=== PATIENT | female | born 1950 | race African-American/Black ===

== ENCOUNTER 2018-02-19 15:42 | Inpatient (IN) | payer OTHER ==
--- NOTE | 2018-02-19 18:43 | HP ---
CIWA Score - CIWA Score Nausea/Vomitin-Mild Nausea/No Vomiting Muscle Tremors: 3 Anxiety: 3 Agitation: 3 Paroxysmal Sweats: 1-Minimal Palms Moist Orientation: 0-Oriented Tacttile Disturbances: 0-None Auditory Disturbances: 0-None Visual Disturbances: 0-None Headache: 0-None Present CIWA-Ar Total Score: 11 Admission ROS S - [facility] Chief Complaint: alcohol withdrawal sx Allergies/Adverse Reactions: Allergies Allergy/AdvReac Type Severity Reaction Status Date / Time egg Allergy Severe Verified 02/19/18 18:19 History of Present Illness: 67 yo f with h/o alcohol use diosrder, severe first admission to [facility] or any detox c/o alcohol withdrawal sx when she does nto drink. no h/o seizures, no DTS or SI. PMHX DM, HTN, arhthritis ambulates with a cane. sent in by her md for detox, Exam Limitations: No Limitations - Ebola screening Have you traveled outside of the country in the last 21 days: No Have you had contact with anyone from an Ebola affected area: No Have you been sick,other than usual withdrawal symptoms: No Do you have a fever: No - Review of Systems Constitutional: Chills, Diaphoresis, Night Sweats, Changes in sleep, Unintentional Wgt. Loss EENT: reports: No Symptoms Reported Respiratory: reports: No Symptoms reported Cardiac: reports: No Symptoms Reported GI: reports: Nausea, Poor Appetite, Poor Fluid Intake, Indigestion, Abdominal cramping : reports: No Symptoms Reported Musculoskeletal: reports: Back Pain, Joint Pain, Joint Swelling, Muscle Pain, Joint Stiffness (arhtjirtis all over) Integumentary: reports: Sweating Neuro: reports: Numbness, Tingling, Tremors Endocrine: reports: Increased Thirst Hematology: reports: No Symptoms Reported Psychiatric: reports: Judgement Intact, Mood/Affect Appropiate, Orientated x3, Anxious, Depressed Other Systems: Reviewed and Negative Patient History - Patient Medical History Hx Anemia: No Hx Asthma: No Hx Chronic Obstructive Pulmonary Disease (COPD): No Hx Cancer: No Hx Cardiac Disorders: No Hx Congestive Heart Failure: No Hx Hypertension: Yes Hx Hypercholesterolemia: No Hx Pacemaker: No HX Cerebrovascular Accident: No Hx Seizures: No Hx Dementia: No Hx Diabetes: Yes (has pump with her blood bglucose 305) Hx Gastrointestinal Disorders: No Hx Liver Disease: No Hx Genitourinary Disorders: No Hx Sexually Transmitted Disorders: No Hx Renal Disease (ESRD): No Hx Thyroid Disease: No Hx Human Immunodeficiency Virus (HIV): No Hx Hepatitis C: No Hx Depression: Yes Hx Suicide Attempt: No (no SI at this time) Hx Bipolar Disorder: No Hx Schizophrenia: No Other Medical History: arthritis, ambulates with a cane - Patient Surgical History Past Surgical History: Yes Hx Orthopedic Surgery: Yes (arthroscopic sure1996) Anesthesia Reaction: No - PPD History Previous Implant?: Yes Documented Results: Negative w/o proof Implanted On Prior [facility] Admission?: No PPD to be Administered?: Yes - Reproductive History Patient is a Female of Child Bearing Age (11 -55 yrs old): No Patient : No - Smoking Cessation Smoking history: Current every day smoker Have you smoked in the past 12 months: Yes Aproximately how many cigarettes per day: 7 Hx Chewing Tobacco Use: No Initiated information on smoking cessation: Yes 'Breaking Loose' booklet given: 02/19/18 - Substance & Tx. History Hx Alcohol Use: Yes Hx Substance Use: No Substance Use Type: Alcohol Hx Substance Use Treatment: No - Substances Abused Alcohol Route: Oral Frequency: Daily Amount used: liquor- 1 pint Age of first use: 21 Date of Last Use: 02/18/18 Family Disease History - Family Disease History Family Disease History: Respiratory: Mother, Other: Brother (alcholism) Admission Physical Exam BHS - Vital Signs Vital Signs: Vital Signs - 24 hr 02/19/18 17:53 Temperature 98.9 F Pulse Rate 89 Respiratory 22 Rate Blood Pressure 158/95 - Physical General Appearance: Yes: Nourished, Appropriately Dressed, Disheveled, Mild Distress, Thin, Tremorous, Irritable, Sweating, Anxious HEENTM: Yes: Within Normal Limits, EOMI, Hearing grossly Normal, Normal ENT Inspection, Normocephalic, Normal Voice, SRI, Pharynx Normal Respiratory: Yes: Within Normal Limits, Chest Non-Tender, Lungs Clear, Normal Breath Sounds, No Respiratory Distress, No Accessory Muscle Use Neck: Yes: Within Normal Limits, No masses,lesions,Nodules, Supple, Trachea in good position Breast: Yes: Breast Exam Deferred Cardiology: Yes: Within Normal Limits, Regular Rhythm, Regular Rate, S1, S2 Abdominal: Yes: Within Normal Limits, Normal Bowel Sounds, Non Tender, Flat, Soft Genitourinary: Yes: Within Normal Limits Back: Yes: Within Normal Limits, Normal Inspection Musculoskeletal: Yes: full range of Motion, Pelvis Stable, Joint Stiffness, Joint swelling Extremities: Yes: Normal Capillary Refill, Normal Range of Motion, Non-Tender, Tremors Neurological: Yes: language specialist II-XII NML intact, Fully Oriented, Alert, Motor Strength 5/5, Normal Response, Depressed Affect Integumentary: Yes: Within Normal Limits, Normal Color, Dry, Warm Lymphatic: Yes: Within Normal Limits - Addiitonal Findings: withdrawal sx - Diagnostic (1) Alcohol dependence with uncomplicated withdrawal Current Visit: Yes Status: Acute (2) Dehydration Current Visit: Yes Status: Acute (3) Depression Current Visit: Yes Status: Acute (4) Essential hypertension Current Visit: Yes Status: Acute (5) IDDM (insulin dependent diabetes mellitus) Current Visit: Yes Status: Acute (6) Insomnia Current Visit: Yes Status: Acute (7) Nicotine dependence Current Visit: Yes Status: Acute (8) Weight loss Current Visit: Yes Status: Acute Cleared for Admission [facility] - Detox or Rehab [facility] Level of Care: Medically Managed Detox Regimen/Protocol: Librium [facility] Breath Alcohol Content Breath Alcohol Content: 0.111 Urine Pregancy Test - Result Urine Test Results: Negative- NO Line Present Urine Drug Screen - Results Drug Screen Negative: Yes
[2018-02-19] MEDS ORDERED: P-EPHED 60MG/TRIPROLIDI 2.5MG TABLET PO PRN (18:45)
[2018-02-19] MEDS ORDERED: LOPERAMIDE HCL 2 MG CAPSULE PO PRN (18:45)
[2018-02-19] MEDS ORDERED: chlordiazePOXIDE HCL 25 MG CAPSULE PO PRN (18:45)
[2018-02-19] MEDS ORDERED: MAGNESIUM CITRATE 300 ML BOTTLE PO PRN (18:45)
[2018-02-19] MEDS ORDERED: hydrOXYzine PAMOATE 50 MG CAPSULE (FP) PO PRN (18:45)
[2018-02-19] MEDS ORDERED: MENTHOL/PHENOL 1 EACH UD MM PRN (18:45)
[2018-02-19] MEDS ORDERED: MAG HYDROX/AL HYDROX/SIMETH 30 ML UNIT-DOSE CUP PO PRN (18:45)
[2018-02-19] MEDS ORDERED: MAGNESIUM HYDROX 2400MG/30ML ORAL SUSPENSION 30 ML CUP PO PRN (18:45)
[2018-02-19] MEDS ORDERED: guaiFENesin/D-METHORPHAN HB 10 ML UNIT-DOSE CUPS PO PRN (18:45)
[2018-02-19] MEDS ORDERED: ACETAMINOPHEN 325 MG TABLET (FP) PO PRN (18:45)
[2018-02-19] MEDS ORDERED: chlordiazePOXIDE HCL 25 MG CAPSULE PO ONE (19:00)
[2018-02-19] MEDS: NICOTINE 14 MG/24 HOURS TOPICAL PATCH TD SCH (20:37)
[2018-02-19] MEDS ORDERED: MELATONIN 5 MG TABLETS PO PRN (22:00)
[2018-02-19] MEDS: THIAMINE HCL 100 MG TABLET (FP) PO SCH (22:21)
[2018-02-19] MEDS: chlordiazePOXIDE HCL 25 MG CAPSULE PO SCH (22:21)
[2018-02-19] MEDS: INSULIN SLIDING SCALE (NOVOLOG) 1 VIAL SQ SCH (23:00)
[2018-02-20] MEDS: chlordiazePOXIDE HCL 25 MG CAPSULE PO SCH ×4 (05:43→22:22)
[2018-02-20] MEDS: INSULIN SLIDING SCALE (NOVOLOG) 1 VIAL SQ SCH ×3 (06:52→22:27)
[2018-02-20] MEDS: IBUPROFEN 400 MG TABLET (FP) PO PRN (08:58)
--- NOTE | 2018-02-20 10:10 | PN ---
BHS CIWA - CIWA Score Nausea/Vomitin Muscle Tremors: 2 Anxiety: 1-Mildly Anxious Agitation: 2 Paroxysmal Sweats: 1-Minimal Palms Moist Orientation: 0-Oriented Tacttile Disturbances: 1-Very Mild Itch/Numbness Auditory Disturbances: 0-None Visual Disturbances: 0-None Headache: 2-Mild CIWA-Ar Total Score: 11 BHS Progress Note (SOAP) Subjective: Interrupted sleep, generalized weakness and pain Objective: 02/20/18 10:09 Vital Signs 02/20/18 02/20/18 02/20/18 03:30 06:12 06:30 Temperature 97.9 F Pulse Rate 87 Respiratory 18 16 18 Rate Blood Pressure 137/90 Laboratory Last Values POC Glucometer 151 UNITS (80-120) 02/20/18 05:45 Labs pending Assessment: 02/20/18 10:10 Withdrawal sx Plan: Continue detox
[2018-02-20] MEDS: LOSARTAN POTASSIUM 50 MG TABLET (FP) PO SCH (10:25)
[2018-02-20] MEDS: PRENATAL VITAMINS W/ FOLIC ACID TABLET (FP) PO SCH (10:25)
[2018-02-20] MEDS: ASPIRIN 81 MG CHEWABLE TABLETS PO SCH (10:25)
[2018-02-20] MEDS: NICOTINE 14 MG/24 HOURS TOPICAL PATCH TD SCH (10:27)
[2018-02-20 10:47] LABS: CHLORIDE 103 mmol/L (98-107); POTASSIUM 3.4 mmol/L (3.5-5.1); SODIUM 141 mmol/L (136-145)
[2018-02-20 10:53] LABS: HEMATOCRIT 33.1 % (32.4-45.2); HEMOGLOBIN 11.2 GM/dL (10.7-15.3); MCH 31.1 pg (25.7-33.7); MCHC 33.9 g/dl (32.0-36.0); MEAN CELL VOLUME 91.6 fl (80-96); PLATELET COUNT 137 K/MM3 (134-434); RBC 3.62 M/mm3 (3.60-5.2); RDW 16.6 % (11.6-15.6); WHITE BLOOD COUNT 3.6 K/mm3 (4.0-10.0)
[2018-02-20 10:59] LABS: ALBUMIN 3.4 g/dl (3.4-5.0); ALK PHOS 249 U/L (45-117); ANION GAP 5 (8-16); BILIRUBIN,TOTAL 0.9 mg/dL (0.2-1.0); BLOOD UREA NITROGEN 6 mg/dL (7-18); CO2 33 mmol/L (21-32); CREATININE 0.6 mg/dL (0.55-1.02); GLUCOSE,RANDOM 178 mg/dL (74-106); SGOT/AST 136 U/L (15-37); SGPT/ALT 67 U/L (12-78); TOT PROT 6.3 g/dl (6.4-8.2)
[2018-02-20] MEDS: metoPROLOL SUCCINATE 25 MG TAB.SR.24H (FP) PO SCH (11:05)
[2018-02-20 12:09] LABS: SICKLE CELL SCREEN NEGATIVE (NEGATIVE)
[2018-02-20] MEDS ORDERED: Insulin (LOG) Aspart 100 UNITS/ML VIAL SQ ONE (13:00)
--- NOTE | 2018-02-20 13:53 | PN ---
S Progress Note Note: Patient with blood glucose level undetected by glucometer before lunch, 12 units of novolin bolus given via pump operated by patient, repeat level 570. Patient to stop insulin pump as per institution policy, sliding scale in place for AC HS with novolin coverage. Patient in agreement with plan.
--- NOTE | 2018-02-20 14:39 | EKG ---
Test Reason : Blood Pressure : / mmHG Vent. Rate : 087 BPM Atrial Rate : 087 BPM P-R Int : 148 ms QRS Dur : 086 ms QT Int : 394 ms P-R-T Axes : 054 007 018 degrees QTc Int : 474 ms NORMAL SINUS RHYTHM NONSPECIFIC T WAVE ABNORMALITY PROLONGED QT ABNORMAL ECG NO PREVIOUS ECGS AVAILABLE Confirmed by MD Kun, Lennox ([id number]) on 02/20/2018 2:39:22 PM Referred By: Confirmed By:Lennox Tristan MD
--- NOTE | 2018-02-20 16:10 | CONSULT ---
[facility] Psychiatric Consult - Data Date of interview: 02/20/18 Admission source: [facility] Identifying data: First admission to [facility] for this 67 y/o [place] female ([place] [facility]) seeking detox treatment on for alcohol dependence.Patient is ,a mother of two,domiciled,unemployed and supported on SSI benefits. Substance Abuse History: Confirmed by patient in this interview.Details in current [facility] report : Smoking history: Current every day smoker. Have you smoked in the past 12 months: Yes. Aproximately how many cigarettes per day: 7. Hx Chewing Tobacco Use: No. Initiated information on smoking cessation: Yes. 'Breaking Loose' booklet given: 02/19/18. - Substance & Tx. History. Hx Alcohol Use: Yes. Hx Substance Use: No. Substance Use Type: Alcohol. Hx Substance Use Treatment: No. - Substances Abused. Alcohol. Route: Oral. Frequency: Daily. Amount used: liquor- 1 pint. Age of first use: 21. Date of Last Use: 02/18/18 Medical History: Remarkable for diabetes mellitus (IDDM),hypertension, osteoarthritis and a distant history of arthroscopic surgery (1996). Psychiatric History: Patient denies. Physical/Sexual Abuse/Trauma History: Patient denies. Additional Comment: Drug Screen is negative. Mental Status Exam - Mental Status Exam Alert and Oriented to: Time, Place, Person Cognitive Function: Good Patient Appearance: Well Groomed (thin habitus) Mood: Euthymic Affect: Appropriate, Normal Range Patient Behavior: Fatigued, Appropriate, Cooperative Speech Pattern: Clear Voice Loudness: Normal Thought Process: Intact, Goal Oriented Thought Disorder: Not Present Hallucinations: Denies Suicidal Ideation: Denies Homicidal Ideation: Denies Insight/Judgement: Poor Sleep: Poorly, Difficulty falling asleep Appetite: Good Gait/Station: Other (slow gait ; uses a cane for ambulation) Psychiatric Findings - Problem List ([place] 1, 2,3) (1) Alcohol dependence with uncomplicated withdrawal Current Visit: Yes Status: Acute (2) Insomnia Current Visit: Yes Status: Acute (3) Nicotine dependence Current Visit: Yes Status: Acute Qualifiers: Nicotine product type: cigarettes Substance use status: uncomplicated Qualified Code(s): F17.210 - Nicotine dependence, cigarettes, uncomplicated - Initial Treatment Plan Initial Treatment Plan: Psychoeducation.Sleep hygiene.Detoxification in progress.Ambien 5 mg po hs prn.Patient is made aware of the risk of sleep- walking.Ms Jeffers agrees with this plan of care.Observation.Falls precautions.
[2018-02-20] MEDS ORDERED: INSULIN SLIDING SCALE (NOVOLOG) 1 VIAL SQ SCH (16:30)
[2018-02-20] MEDS ORDERED: INSULIN (NOVOLOG) ASPART 100 UNITS/ML 10ML VIAL ONE ×2 (16:52→22:24)
[2018-02-20] MEDS ORDERED: ZOLPIDEM TARTRATE 5 MG TABLET PO PRN (22:00)
[2018-02-20] MEDS: POTASSIUM CHLORIDE TABS 20 MEQ TABLET.ER (FP) PO SCH (22:22)
[2018-02-20] MEDS: THIAMINE HCL 100 MG TABLET (FP) PO SCH (22:22)
[2018-02-21] MEDS ORDERED: INSULIN (NOVOLOG) ASPART 100 UNITS/ML 10ML VIAL ONE ×3 (05:48→22:19)
[2018-02-21] MEDS: chlordiazePOXIDE HCL 25 MG CAPSULE PO SCH ×3 (05:49→17:53)
[2018-02-21] MEDS: INSULIN SLIDING SCALE (NOVOLOG) 1 VIAL SQ SCH ×4 (06:05→22:18)
[2018-02-21 09:57] LABS: CHLORIDE 101 mmol/L (98-107); POTASSIUM 3.7 mmol/L (3.5-5.1); SODIUM 140 mmol/L (136-145)
[2018-02-21 10:08] LABS: ANION GAP 6 (8-16); BLOOD UREA NITROGEN 8 mg/dL (7-18); CALCIUM 8.3 mg/dL (8.5-10.1); CO2 33 mmol/L (21-32); CREATININE 0.7 mg/dL (0.55-1.02); GLUCOSE,RANDOM 262 mg/dL (74-106)
[2018-02-21] MEDS ORDERED: ONDANSETRON *ODT* 4 MG TABLET SL PRN (10:45)
[2018-02-21] MEDS: LOSARTAN POTASSIUM 50 MG TABLET (FP) PO SCH (11:09)
[2018-02-21] MEDS: PRENATAL VITAMINS W/ FOLIC ACID TABLET (FP) PO SCH (11:09)
[2018-02-21] MEDS: metoPROLOL SUCCINATE 25 MG TAB.SR.24H (FP) PO SCH (11:09)
[2018-02-21] MEDS: ASPIRIN 81 MG CHEWABLE TABLETS PO SCH (11:09)
[2018-02-21] MEDS: NICOTINE 14 MG/24 HOURS TOPICAL PATCH TD SCH (11:10)
[2018-02-21] MEDS: POTASSIUM CHLORIDE TABS 20 MEQ TABLET.ER (FP) PO SCH ×2 (11:10→22:17)
[2018-02-21] MEDS ORDERED: INSULIN (NOVOLOG) ASPART 100 UNITS/ML 10ML VIAL SQ ONE (11:32)
--- NOTE | 2018-02-21 13:54 | PN ---
S CIWA - CIWA Score Nausea/Vomitin Muscle Tremors: 3 Anxiety: 3 Agitation: 3 Paroxysmal Sweats: 3 Orientation: 0-Oriented Tacttile Disturbances: 1-Very Mild Itch/Numbness Auditory Disturbances: 0-None Visual Disturbances: 0-None Headache: 1-Very Mild CIWA-Ar Total Score: 16 S Progress Note (SOAP) Subjective: Anxious, nausea, stomach ache, agitated (wants to go home because feels miserable being here) Objective: 02/21/18 13:50 Last Vital Signs Temp Pulse Resp BP Pulse Ox 98.1 F 90 18 145/95 02/21/18 13:25 02/21/18 13:25 02/21/18 13:25 02/21/18 13:25 Laboratory Tests 02/19/18 02/19/18 02/20/18 18:42 22:17 05:45 WBC RBC Hgb Hct MCV MCH MCHC RDW Plt Count MPV Sickle Cell Screen Sodium Potassium Chloride Carbon Dioxide Anion Gap BUN Creatinine Creat Clearance w eGFR POC Glucometer 307 327 151 Random Glucose Calcium Total Bilirubin AST ALT Alkaline Phosphatase Total Protein Albumin RPR Titer 02/20/18 02/20/18 02/20/18 07:40 07:40 07:40 WBC 3.6 L RBC 3.62 Hgb 11.2 Hct 33.1 MCV 91.6 MCH 31.1 MCHC 33.9 RDW 16.6 H Plt Count 137 MPV 9.0 Sickle Cell Screen Negative Sodium 141 Potassium 3.4 L Chloride 103 Carbon Dioxide 33 H Anion Gap 5 L BUN 6 L Creatinine 0.6 Creat Clearance w eGFR > 60 POC Glucometer Random Glucose 178 H Calcium 8.0 L Total Bilirubin 0.9 AST 136 H ALT 67 Alkaline Phosphatase 249 H Total Protein 6.3 L Albumin 3.4 RPR Titer Nonreactive 02/20/18 02/20/18 02/21/18 12:19 22:21 05:46 WBC RBC Hgb Hct MCV MCH MCHC RDW Plt Count MPV Sickle Cell Screen Sodium Potassium Chloride Carbon Dioxide Anion Gap BUN Creatinine Creat Clearance w eGFR POC Glucometer 570 254 212 Random Glucose Calcium Total Bilirubin AST ALT Alkaline Phosphatase Total Protein Albumin RPR Titer 02/21/18 02/21/18 07:15 11:21 WBC RBC Hgb Hct MCV MCH MCHC RDW Plt Count MPV Sickle Cell Screen Sodium 140 Potassium 3.7 Chloride 101 Carbon Dioxide 33 H Anion Gap 6 L BUN 8 Creatinine 0.7 Creat Clearance w eGFR POC Glucometer 447 Random Glucose 262 H Calcium 8.3 L Total Bilirubin AST ALT Alkaline Phosphatase Total Protein Albumin RPR Titer Labs reviewed: hyperglycemia, K 3.4 Assessment: 02/21/18 13:52 Withdrawal symptoms Noted with DMT2 with hyperglycemia and mild hypokalemia Plan: Continue detox Encouraged PO hydration (water) DMT2 with hyperglycemia: encouraged adherence to diabetic diet, insulin novolog 15 units sq x 1 dose for fs 447, continue to monitor finger stick Mild hypokalemia: supplemented
[2018-02-21] MEDS: chlordiazePOXIDE 5 MG CAPSULE PO SCH (22:17)
[2018-02-21] MEDS: THIAMINE HCL 100 MG TABLET (FP) PO SCH (22:17)
[2018-02-21 22:51] LABS: URINE APPEARANCE CLEAR; URINE BILIRUBIN NEGATIVE (<2.0 mg/dL); URINE COLOR LTYELLOW; URINE GLUCOSE (UA) 3+ (NEGATIVE); URINE KETONE NEGATIVE (NEGATIVE); URINE LEUK ESTERASE NEGATIVE (NEGATIVE); URINE NITRITE NEGATIVE (NEGATIVE)
[2018-02-21 22:53] LABS: URINE PROTEIN 2+ (NEGATIVE)
[2018-02-21 22:56] LABS: EPI CELLS RARE /HPF (FEW); URINE BACTERIA RARE /hpf (NONE SEEN)
[2018-02-22] MEDS: chlordiazePOXIDE 5 MG CAPSULE PO SCH ×3 (05:23→16:40)
[2018-02-22] MEDS ORDERED: INSULIN (NOVOLOG) ASPART 100 UNITS/ML 10ML VIAL ONE ×4 (07:45→22:18)
[2018-02-22] MEDS: INSULIN SLIDING SCALE (NOVOLOG) 1 VIAL SQ SCH (07:50)
[2018-02-22] MEDS: NICOTINE POLACRILEX 2 MG GUM BC PRN ×3 (09:37→22:21)
--- NOTE | 2018-02-22 10:02 | PN ---
[facility] Progress Note (SOAP) Subjective: ALERT,IRRITABLE,ANXIOUS,INTERRUPTED SLEEP Objective: 02/22/18 09:59 Vital Signs Temperature 98.2 F 02/22/18 06:28 Pulse Rate 86 02/22/18 06:28 Respiratory Rate 18 02/22/18 06:30 Blood Pressure 120/77 02/22/18 06:28 O2 Sat by Pulse Oximetry (%) EGM 270 02/22/18 10:02 Laboratory Last Values WBC 3.6 K/mm3 (4.0-10.0) L 02/20/18 07:40 RBC 3.62 M/mm3 (3.60-5.2) 02/20/18 07:40 Hgb 11.2 GM/dL (10.7-15.3) 02/20/18 07:40 Hct 33.1 % (32.4-45.2) 02/20/18 07:40 MCV 91.6 fl (80-96) 02/20/18 07:40 MCH 31.1 pg (25.7-33.7) 02/20/18 07:40 MCHC 33.9 g/dl (32.0-36.0) 02/20/18 07:40 RDW 16.6 % (11.6-15.6) H 02/20/18 07:40 Plt Count 137 K/MM3 (134-434) 02/20/18 07:40 MPV 9.0 fl (7.5-11.1) 02/20/18 07:40 Sickle Cell Screen Negative (NEGATIVE) 02/20/18 07:40 Sodium 140 mmol/L (136-145) 02/21/18 07:15 Potassium 3.7 mmol/L (3.5-5.1) 02/21/18 07:15 Chloride 101 mmol/L (98-107) 02/21/18 07:15 Carbon Dioxide 33 mmol/L (21-32) H 02/21/18 07:15 Anion Gap 6 (8-16) L 02/21/18 07:15 BUN 8 mg/dL (7-18) 02/21/18 07:15 Creatinine 0.7 mg/dL (0.55-1.02) 02/21/18 07:15 Creat Clearance w eGFR > 60 (>60) 02/20/18 07:40 POC Glucometer 270 UNITS (80-120) 02/22/18 05:22 Random Glucose 262 mg/dL (74-106) H 02/21/18 07:15 Calcium 8.3 mg/dL (8.5-10.1) L 02/21/18 07:15 Total Bilirubin 0.9 mg/dL (0.2-1.0) 02/20/18 07:40 AST 136 U/L (15-37) H 02/20/18 07:40 ALT 67 U/L (12-78) 02/20/18 07:40 Alkaline Phosphatase 249 U/L (45-117) H 02/20/18 07:40 Total Protein 6.3 g/dl (6.4-8.2) L 02/20/18 07:40 Albumin 3.4 g/dl (3.4-5.0) 02/20/18 07:40 Urine Color Ltyellow 02/21/18 21:40 Urine Appearance Clear 02/21/18 21:40 Urine pH 7.0 (5.0-8.0) 02/21/18 21:40 Ur Specific [place] 1.014 (1.001-1.035) 02/21/18 21:40 Urine Protein 2+ (NEGATIVE) H 02/21/18 21:40 Urine Glucose (UA) 3+ (NEGATIVE) H 02/21/18 21:40 Urine Ketones Negative (NEGATIVE) 02/21/18 21:40 Urine Blood Negative (NEGATIVE) 02/21/18 21:40 Urine Nitrite Negative (NEGATIVE) 02/21/18 21:40 Urine Bilirubin Negative (<2.0 mg/dL) 02/21/18 21:40 Urine Urobilinogen 2.0 mg/dL (0.2-1.0) H 02/21/18 21:40 Ur Leukocyte Esterase Negative (NEGATIVE) 02/21/18 21:40 Urine WBC (Auto) 2 /hpf (3-5) 02/21/18 21:40 Urine RBC (Auto) <1 /hpf (0-3) 02/21/18 21:40 Ur Epithelial Cells Rare /HPF (FEW) 02/21/18 21:40 Urine Bacteria Rare /hpf (NONE SEEN) 02/21/18 21:40 RPR Titer Nonreactive (NONREACTIVE) 02/20/18 07:40 Assessment: 02/22/18 10:03 WITHDRAWAL SYMPTOM Plan: CONTINUE DETOX,BGM MONITORING,DIETTICIAN CONSULTATION,HBA1C,PATIENT WOULD LIFE TO LEAVE IN AM
[2018-02-22] MEDS: POTASSIUM CHLORIDE TABS 20 MEQ TABLET.ER (FP) PO SCH (10:20)
[2018-02-22] MEDS: metoPROLOL SUCCINATE 25 MG TAB.SR.24H (FP) PO SCH (10:20)
[2018-02-22] MEDS: LOSARTAN POTASSIUM 50 MG TABLET (FP) PO SCH (10:20)
[2018-02-22] MEDS: ASPIRIN 81 MG CHEWABLE TABLETS PO SCH (10:20)
[2018-02-22] MEDS: PRENATAL VITAMINS W/ FOLIC ACID TABLET (FP) PO SCH (10:20)
[2018-02-22] MEDS: NICOTINE 14 MG/24 HOURS TOPICAL PATCH TD SCH (10:24)
[2018-02-22] MEDS: INSULIN (NOVOLOG) ASPART 100 UNITS/ML 10ML VIAL SQ SCH ×3 (12:08→22:17)
[2018-02-22] MEDS: IBUPROFEN 400 MG TABLET (FP) PO PRN (15:47)
[2018-02-22] MEDS: THIAMINE HCL 100 MG TABLET (FP) PO SCH (22:16)
[2018-02-22] MEDS: chlordiazePOXIDE HCL 10 MG CAPSULE PO SCH (22:16)
[2018-02-23] MEDS: chlordiazePOXIDE HCL 10 MG CAPSULE PO SCH ×2 (05:44→10:27)
[2018-02-23] MEDS ORDERED: INSULIN (NOVOLOG) ASPART 100 UNITS/ML 10ML VIAL ONE ×2 (07:31→11:28)
[2018-02-23] MEDS: INSULIN (NOVOLOG) ASPART 100 UNITS/ML 10ML VIAL SQ SCH ×2 (07:36→11:30)
--- NOTE | 2018-02-23 08:18 | PN ---
[facility]HS Progress Note (SOAP) Subjective: ALERT,NO COMPLAINT Objective: 02/23/18 08:16 Vital Signs Temperature 97.7 F 02/23/18 06:26 Pulse Rate 80 02/23/18 06:26 Respiratory Rate 18 02/23/18 06:26 Blood Pressure 131/83 02/23/18 06:26 O2 Sat by Pulse Oximetry (%) DETOX COMPLETED,NO WITHDRAWAL SYMPTOM Assessment: 02/23/18 08:16 BGM 364 Plan: PATIENT IS STABLE FOR DISCHARGE,WOULD LIKE TO LEAVE TODAY,FOLLOW UP WITH AFTER CARE PROGRAM ARRANGEMENT
--- NOTE | 2018-02-23 08:31 | DS ---
[facility] Detox Discharge Summary Admission Date: 02/19/18 Discharge Date: 02/23/18 - History Present History: Alcohol Dependence Additional Comments: FOLLOW UP WITH AFTER CARE PROGRAM ARRANGEMENT Pertinent Past History: ESSENTIAL HYPERTENSION NICOTINE DEPENDENCE WEIGHT LOSS INSOMNIA DEHYDRATION OLD LEFT KNEE INJURY CANE FOR AMBULATORY AID - Physical Exam Results Vital Signs: Vital Signs Temperature 97.7 F 02/23/18 06:26 Pulse Rate 80 02/23/18 06:26 Respiratory Rate 18 02/23/18 06:26 Blood Pressure 131/83 02/23/18 06:26 O2 Sat by Pulse Oximetry (%) Pertinent Admission Physical Exam Findings: WITHDRAWAL SIGN AND SYMPTOM - Treatment Hospital Course: Detox Protocol Followed, Detoxed Safely, Responded well, Discharged Condition Good, Rehab Referral Accepted Patient has Accepted a Rehab Referral to: [facility] - Medication Discharge Medications: Ambulatory Orders Escitalopram Oxalate [Lexapro -] 20 mg PO DAILY 02/19/18 Aspirin [ASA -] 81 mg PO DAILY #30 tab.chew 02/22/18 Calcium Carbonate [Super Calcium] 600 mg PO DAILY #30 tablet 02/22/18 Losartan Potassium [Cozaar -] 50 mg PO DAILY #30 tablet 02/22/18 Metoprolol Succinate [Toprol XL -] 25 mg PO DAILY #30 tab.sr.24h 02/22/18 - Diagnosis (1) Alcohol dependence with uncomplicated withdrawal Current Visit: Yes Status: Acute (2) Dehydration Current Visit: Yes Status: Acute (3) Weight loss Current Visit: Yes Status: Acute (4) Essential hypertension Current Visit: Yes Status: Chronic (5) IDDM (insulin dependent diabetes mellitus) Current Visit: Yes Status: Chronic (6) Nicotine dependence Current Visit: Yes Status: Chronic Qualifiers: Nicotine product type: cigarettes Substance use status: uncomplicated Qualified Code(s): F17.210 - Nicotine dependence, cigarettes, uncomplicated (7) Ambulates with cane Current Visit: Yes Status: Acute (8) Left knee injury Current Visit: Yes Status: Acute - AMA Did Patient Leave Against Medical Advice: No
[2018-02-23 08:55] VITALS: BP 128/85; PULSE 85; TEMP 97.9
[2018-02-23] MEDS: ASPIRIN 81 MG CHEWABLE TABLETS PO SCH (10:26)
[2018-02-23] MEDS: LOSARTAN POTASSIUM 50 MG TABLET (FP) PO SCH (10:27)
[2018-02-23] MEDS: metoPROLOL SUCCINATE 25 MG TAB.SR.24H (FP) PO SCH (10:27)
[2018-02-23] MEDS: PRENATAL VITAMINS W/ FOLIC ACID TABLET (FP) PO SCH (10:27)
[2018-02-23] MEDS: NICOTINE 14 MG/24 HOURS TOPICAL PATCH TD SCH (10:29)
[2018-02-24 00:39] LABS: URINE APPEARANCE SLCLOUDY; URINE BILIRUBIN NEGATIVE (<2.0 mg/dL); URINE COLOR DKYELLOW; URINE GLUCOSE (UA) 3+ (NEGATIVE); URINE KETONE NEGATIVE (NEGATIVE); URINE LEUK ESTERASE TRACE (NEGATIVE); URINE NITRITE NEGATIVE (NEGATIVE)
[2018-02-24 00:42] LABS: URINE PROTEIN 1+ (NEGATIVE)
[2018-02-24 00:44] LABS: EPI CELLS FEW /HPF (FEW); URINE BACTERIA RARE /hpf (NONE SEEN); URINE HYALINE CAST 25 /lpf; URINE MUCUS RARE
== END 2018-02-23 12:30 | disposition home or self-care (01) | DRG 897 ==
LOC: YASAS 15:42 → Y6N 18:17
PROVIDERS: ADMIT Surgery; ATTEND Surgery
PROC: HZ2ZZZZ Detoxification Services for Substance Abuse Treatment (ICD-10-PCS; principal; 2018-02-19)
DX: F10.230 Alcohol dependence with withdrawal, uncomplicated (principal); F17.210 Nicotine dependence, cigarettes, uncomplicated; F32.9 Major depressive disorder, single episode, unspecified; I10 Essential (primary) hypertension; E86.0 Dehydration; E87.6 Hypokalemia; E11.65 Type 2 diabetes mellitus with hyperglycemia; Z96.41 Presence of insulin pump (external) (internal); Z79.4 Long term (current) use of insulin; M19.90 Unspecified osteoarthritis, unspecified site; Z91.012 Allergy to eggs; R26.2 Difficulty in walking, not elsewhere classified; Z99.89 Dependence on other enabling machines and devices; Z87.898 Personal history of other specified conditions
CPT/HCPCS: 36415; 80048; 80053; 81003; 81015; 82962; 83036; 85027; 85660; 86593; 93005; 93010; Q0162